=== PATIENT | female | born 1950 | race Caucasian/White ===

== ENCOUNTER 2020-09-08 17:19 | Inpatient (IN) | payer MEDICARE ==
[~2020-09-08] VITALS: Ht 170.2 cm; Wt 84.3 kg
[2020-09-08 18:00] LABS: BASOPHILS ABSOLUTE AUTO 0.05 K/mm3 (0.00-0.23); BASOPHILS PERCENT AUTO 1 % (0-2); EOSINOPHILS ABSOLUTE AUTO 0.17 K/mm3 (0.00-0.68); EOSINOPHILS PERCENT AUTO 2 % (0-6); Hematocrit 42.6 % (33.0-51.0); Hemoglobin 13.8 g/dL (11.5-16.0); IMMATURE GRAN ABSOLUTE AUTO 0.01 K/mm3 (0.00-0.10); IMMATURE GRAN PERCENT AUTO 0 % (0-1); LYMPHOCYTES ABSOLUTE AUTO 1.56 K/mm3 (0.84-5.20); LYMPHOCYTES PERCENT AUTO 22 % (21-46); MONOCYTES ABSOLUTE AUTO 0.74 K/mm3 (0.16-1.47); MONOCYTES PERCENT AUTO 10 % (4-13); Mean Corpuscular HGB 30.8 pg (26.0-34.0); Mean Corpuscular HGB Conc 32.4 g/dL (31.5-36.5); Mean Corpuscular Volume 95 fL (80-100); Mean Platelet Volume 10.4 fL (9.1-12.4); NEUTROPHILS ABSOLUTE AUTO 4.64 K/mm3 (1.96-9.15); NEUTROPHILS PERCENT AUTO 65 % (41-73); Platelet Count 296 K/mm3 (150-400); RDW Coefficient Variation 12.8 % (11.7-14.2); RDW Standard Deviation 45.4 fL (35.1-46.3); Red Blood Cell Count 4.48 M/mm3 (3.80-5.20); White Blood Cell Count 7.17 K/mm3 (4.00-11.30)
[2020-09-08 18:20] LABS: Alanine Aminotransfer (ALT/SGP 31 U/L (12-78); Albumin, Blood 4.2 g/dL (3.4-5.0); Albumin/Globulin Ratio 1.2 (0.8-1.8); Alk Phos 96 U/L (50-136); Anion Gap 8 mmol/L (6-16); Aspartate Aminotrans (AST/SGOT 21 U/L (12-37); Bilirubin, Total 0.3 mg/dL (0.1-1.0); Blood Urea Nitrogen 24 mg/dL (8-24); Bun/Creatinine Ratio 42.6 (12.0-20.0); CO2, Blood 26 mmol/L (21-32); Calcium, Blood 9.7 mg/dL (8.5-10.1); Chloride, Blood 108 mmol/L (98-108); Creatinine, Blood 0.56 mg/dL (0.40-1.00); Globulin, Blood 3.4 g/dL (2.2-4.0); Glomerular Filtration Rate >60 (60-); Glucose, Blood 103 mg/dL (70-99); Potassium, Blood 3.8 mmol/L (3.5-5.5); Sodium, Blood 142 mmol/L (136-145); Total Protein, Blood 7.6 g/dL (6.4-8.2)
[2020-09-08] MEDS ORDERED: LEVSOD100 PO (21:54)
[2020-09-08] MEDS ORDERED: HYDCHL25 PO (21:54)
[2020-09-08] MEDS ORDERED: Robaxin750 MG (21:55)
[2020-09-08] MEDS ORDERED: LOSA50 PO (21:55)
[2020-09-08] MEDS ORDERED: HYDR1TAB94 PO (21:56)
--- NOTE | 2020-09-08 22:00 | NUR ---
PT ARRIVED TO FLOOR ACCOMPANIED BY DAUGHTER. PT A/O, VSS. SATS 89-90% ON RA, 2L O2 NC PLACED. LLE SHORTENED, PT REP MILD N/T AT BASELINE, STATES LLE N/T INC AT HIS TIME. CAP REFILL WNL. PT REP PAIN HARINDER AFTER SETTLED INTO BED. PT ORIENTED TO ROOM/CALL LIGHT. PLAN NPO AT MIDNIGHT FOR SURGERY IN AM.
[2020-09-08 22:01] LABS: Source, Urine Catheter
[2020-09-08 22:04] LABS: Bilirubin, Urine Neg (Neg); Blood, Urine Neg (Neg); Glucose Qualitative, Urine Neg (Neg); Ketones, Urine Neg (Neg); Leukocyte Esterase, Urine Neg (Neg); Nitrite, Urine Neg (Neg); Protein, Urine Neg (Neg); Specific Gravity, Urine 1.025 (1.003-1.022); Urobilinogen, Urine NORM (Normal)
[2020-09-08 22:10] LABS: Appearance, Urine Clear (Clear); Color, Urine Yellow (P-Yellow)
[2020-09-09 05:37] LABS: BASOPHILS ABSOLUTE AUTO 0.05 K/mm3 (0.00-0.23); BASOPHILS PERCENT AUTO 1 % (0-2); EOSINOPHILS ABSOLUTE AUTO 0.03 K/mm3 (0.00-0.68); EOSINOPHILS PERCENT AUTO 0 % (0-6); Hematocrit 35.8 % (33.0-51.0); Hemoglobin 11.7 g/dL (11.5-16.0); IMMATURE GRAN ABSOLUTE AUTO 0.03 K/mm3 (0.00-0.10); IMMATURE GRAN PERCENT AUTO 0 % (0-1); LYMPHOCYTES ABSOLUTE AUTO 1.33 K/mm3 (0.84-5.20); LYMPHOCYTES PERCENT AUTO 13 % (21-46); MONOCYTES ABSOLUTE AUTO 1.03 K/mm3 (0.16-1.47); MONOCYTES PERCENT AUTO 10 % (4-13); Mean Corpuscular HGB 31.4 pg (26.0-34.0); Mean Corpuscular HGB Conc 32.7 g/dL (31.5-36.5); Mean Corpuscular Volume 96 fL (80-100); Mean Platelet Volume 10.6 fL (9.1-12.4); NEUTROPHILS ABSOLUTE AUTO 7.42 K/mm3 (1.96-9.15); NEUTROPHILS PERCENT AUTO 75 % (41-73); Platelet Count 256 K/mm3 (150-400); RDW Coefficient Variation 13.1 % (11.7-14.2); RDW Standard Deviation 46.8 fL (35.1-46.3); Red Blood Cell Count 3.73 M/mm3 (3.80-5.20); White Blood Cell Count 9.89 K/mm3 (4.00-11.30)
[2020-09-09 05:59] LABS: Anion Gap 7 mmol/L (6-16); Blood Urea Nitrogen 21 mg/dL (8-24); Bun/Creatinine Ratio 37.2 (12.0-20.0); CO2, Blood 27 mmol/L (21-32); Calcium, Blood 8.8 mg/dL (8.5-10.1); Chloride, Blood 106 mmol/L (98-108); Creatinine, Blood 0.57 mg/dL (0.40-1.00); Glomerular Filtration Rate >60 (60-); Glucose, Blood 100 mg/dL (70-99); Potassium, Blood 3.8 mmol/L (3.5-5.5); Sodium, Blood 140 mmol/L (136-145)
--- NOTE | 2020-09-09 06:21 | NUR ---
PT NEW ADMIT THIS SHIFT FOR LEFT HIP FX. PT VSS SINCE ARRIVING TO FLOOR, 2LO2 IN PLACE. PAIN MGD PER EMAR AND W/REPOSITIONING. CAP REFILL WNL, PT DOES REP MORE N/T IN LLE THAN BASELINE. PT NPO POST MIDNIGHT FOR PLAN FOR OR THIS AM. IVF CONT PER ORDERS.
--- NOTE | 2020-09-09 08:23 | NUR ---
Patient to OR
--- NOTE | 2020-09-09 09:15 | NUR ---
09/09/20 0915 Anu Maher ANCEF 2 GM IV GIVEN BY DR CHIANG AT 0843 FROM HIS Intense[employer] MACHINE.
--- NOTE | 2020-09-09 11:37 | NUR ---
Patient returned to room 215 s/p L milvia hip. Aquacel dressing CDI. Patient denies pain at this time. Post op VS in progress and WNL. Pt on 2L O2 via NC. Patient resting comfortable at this time. Call light within reach.
--- NOTE | 2020-09-09 15:56 | NUR ---
Shift summary Pain controlled with [place]. Clancy catheter patent draining clear/yellow urine. Aquacel dressing CDI. Patient tolerating regular low sodium diet. Family at bedside earlier today offering support. Call light within patient reach.
[2020-09-10 04:36] LABS: BASOPHILS ABSOLUTE AUTO 0.03 K/mm3 (0.00-0.23); BASOPHILS PERCENT AUTO 0 % (0-2); EOSINOPHILS ABSOLUTE AUTO 0.03 K/mm3 (0.00-0.68); EOSINOPHILS PERCENT AUTO 0 % (0-6); Hematocrit 33.2 % (33.0-51.0); Hemoglobin 10.5 g/dL (11.5-16.0); IMMATURE GRAN ABSOLUTE AUTO 0.03 K/mm3 (0.00-0.10); IMMATURE GRAN PERCENT AUTO 0 % (0-1); LYMPHOCYTES ABSOLUTE AUTO 1.08 K/mm3 (0.84-5.20); LYMPHOCYTES PERCENT AUTO 9 % (21-46); MONOCYTES ABSOLUTE AUTO 1.54 K/mm3 (0.16-1.47); MONOCYTES PERCENT AUTO 12 % (4-13); Mean Corpuscular HGB 30.9 pg (26.0-34.0); Mean Corpuscular HGB Conc 31.6 g/dL (31.5-36.5); Mean Corpuscular Volume 98 fL (80-100); Mean Platelet Volume 9.9 fL (9.1-12.4); NEUTROPHILS ABSOLUTE AUTO 9.94 K/mm3 (1.96-9.15); NEUTROPHILS PERCENT AUTO 79 % (41-73); Platelet Count 214 K/mm3 (150-400); RDW Coefficient Variation 13.1 % (11.7-14.2); RDW Standard Deviation 46.7 fL (35.1-46.3); White Blood Cell Count 12.65 K/mm3 (4.00-11.30)
--- NOTE | 2020-09-10 04:40 | NUR ---
PT REQUESTED FOR NORCO. BROUGHT IN NORCO AND SCANNED IT, BUT THE PT DECIDED ON NOT TAKING IT. NORCO WAS WASTED WITH MARCELA ROMO IN THE PYXIS.
--- NOTE | 2020-09-10 04:42 | NUR ---
PT CALLED REQ PAIN MEDS. NORCO PULLED AND SCANNED BY KRAIG BORJAS RN. PT THEN DECIDED DID NOT WANT THE NORCO AT THIS TIME. MED WASTED AND DISPOSED IN PYXIS W/KRAIG Ibarra RN.
--- NOTE | 2020-09-10 04:56 | NUR ---
SHIFT SUMMARY: CLOSED HIP FX POD 1. PT HAS BEEN A&OX4 THROUGHOUT SHIFT. OXYGEN INCREASED TO 3L FROM THE 2L. SHE HAS BEEN IN THE LOWER 90% SATS SINCE. SHE HAS AN BIOX ON TO MONITOR HER SATS AND ALSO ENCOURAGED HER TO USE THE INCENTIVE SPIROMETER. PT'S PAIN HAS BEEN MANAGED WITH 1 NORCO AND THE TORADOL. ENCISO CATHETER IS DRAINING CLEAR/YELLOW OUTPUT. AQUACEL DRESSING C/D/I. PT TOLERATING REG DIET. DENIES NAUSEA/VOMITING. CALL LIGHT IS WITHIN REACH. PLAN IS FOR PT/OT TO EVALUATE HER TODAY.
--- NOTE | 2020-09-10 08:20 | NUR ---
DR ARREOLA HERE TO SEE PT.
--- NOTE | 2020-09-10 08:41 | NUR ---
DR ARREOLA BACK TO TALK WITH PT PER HER REQ REGARDING HX OF HAVING MRI ON BACK.
--- NOTE | 2020-09-10 09:22 | NUR ---
PT GIVEN TOOTH BRUSH, TOOTH PASTE, AND WARM WET WASH CLOTH FOR FACE PER PT REQ.
--- NOTE | 2020-09-10 09:53 | NUR ---
PT REPOSITIONED PER PT REQ WITH FEMALE ARMATURE TESTER WITH PT'S FAMILY IN ROOM.
--- NOTE | 2020-09-10 10:31 | NUR ---
THERAPY BEEN AND STILL IS WORKING WITH PT, FAMILY PRESENT.
--- NOTE | 2020-09-10 12:18 | NUR ---
PT ENC TO USE I/S, RE-EDUCATED PT ON USE. ICE PLACED TO PT'S HIP. PT UP IN CHAIR FINISHING LUNCH.
--- NOTE | 2020-09-10 16:30 | NUR ---
JONE (CAPRICE) HERE TO SEE PT, DISCUSSED PT'S STATUS.
--- NOTE | 2020-09-10 17:14 | NUR ---
SHIFT SUMMARY PT EATING AND DRINKING. PT HAS ENCISO IN PLACE, DRAINING WELL. PT WAS UP TO CHAIR WITH THERAPY. PT BEEN REPOSITIONED MULT TIMES TODAY IN BED AND CHAIR. PT BEEN ASSISTED WITH ADL'S PRN. PT BEEN MED PRN FOR PAIN.
[2020-09-11 03:51] LABS: BASOPHILS ABSOLUTE AUTO 0.06 K/mm3 (0.00-0.23); BASOPHILS PERCENT AUTO 1 % (0-2); EOSINOPHILS PERCENT AUTO 4 % (0-6); Hematocrit 32.8 % (33.0-51.0); Hemoglobin 10.4 g/dL (11.5-16.0); IMMATURE GRAN ABSOLUTE AUTO 0.03 K/mm3 (0.00-0.10); IMMATURE GRAN PERCENT AUTO 0 % (0-1); LYMPHOCYTES ABSOLUTE AUTO 1.18 K/mm3 (0.84-5.20); LYMPHOCYTES PERCENT AUTO 12 % (21-46); MONOCYTES ABSOLUTE AUTO 1.31 K/mm3 (0.16-1.47); MONOCYTES PERCENT AUTO 13 % (4-13); Mean Corpuscular HGB 30.8 pg (26.0-34.0); Mean Corpuscular HGB Conc 31.7 g/dL (31.5-36.5); Mean Corpuscular Volume 97 fL (80-100); Mean Platelet Volume 10.1 fL (9.1-12.4); NEUTROPHILS ABSOLUTE AUTO 7.06 K/mm3 (1.96-9.15); NEUTROPHILS PERCENT AUTO 70 % (41-73); Platelet Count 194 K/mm3 (150-400); RDW Standard Deviation 46.7 fL (35.1-46.3); Red Blood Cell Count 3.38 M/mm3 (3.80-5.20); White Blood Cell Count 10.04 K/mm3 (4.00-11.30)
--- NOTE | 2020-09-11 04:44 | NUR ---
SHIFT SUMMARY: PT POD#2 FOR LT RAMIREZ HIP. AQUACEL DRESSING C/D/I. PAIN BEING MANAGED WITH NORCO PER EMAR. PT REPOSITIONED FREQUENTLY THROUGHOUT SHIFT. ENCISO IN PLACE WITH ADEQUATE URINE OUTPUT. PT REMAINS ON 2.5LO2 VIA NC WITH AN O2 SATURATION OF 94%. PT ENCOURAGED TO USE INCENTIVE SPIROMETER WHILE AWAKE. PT ANXIOUS TO WORK WITH PHYSICAL THERAPY TODAY. PLAN FOR SNF.
--- NOTE | 2020-09-11 13:10 | NUR ---
DR ARREOLA RECENTLY NOTIFIED THAT PT HAD NOT VOIDED OR HAD BM EVEN THOUGH PT HAS BEEN ENCOURAGED TO HAVE PRUNE JUICE THIS AM WHICH PT REPORTED NOT DRINKING IT, PT HAD SOME WITH LUNCH. GAVE ORDERS FOR B/S AND ENCISO IF NEEDED, SEE ORDERS. REPORTS WILL PLACE ORDER FOR SUPPOSITORY. PT BEEN ASSISTED TO CHAIR. PT DID HAVE SMEAR WITH FEW DROPS OF LIQUID STOOL BUT DID NOT VOID. PT B/S 90. DR ARREOLA NOTIFIED OF THESE RESULTS, REPORTED TO CONT WITH DISCHARGE AND TO CONT TO ENC PO INTAKE. ORDER FOR B/S AND ENCISO IN WITH DISCHARGE PAPERWORK. PT TO BE OUT BY TRANSPORT BY W/C WITH O2 IN PLACE. FAMILY PRESENT. DISCUSSED WITH OTHER CLARISSA Monreal AND CHROME TANNING DRUM OPERATOR H.L..
--- NOTE | 2020-09-11 13:43 | NUR ---
DISCHARGE NOTE PT A/O X4, IV ACCESS DC'D W/ NO OTHER IV ACCESS IN PLACE, NO SORES ON BUTTOCKS OR HEELS, TOLERATING PO, BLADDER SCAN PRIOR TO DC SHOWS 90 ML IN BLADDER, ENCISO DC'D THIS MORNING, SMALL SMEAR BM JUST PRIOR TO DC, DOES WELL W/ 2 PERSON ASSIST FOR TRANSFERRING, PAIN WELL CONTROLLED (SEE EMAR), PT LEFT AT 1330 VIA WC W/ ALL PERSONAL POSSESSIONS AND 2L O2 VIA PORTABLE CANISTER. REPORT GIVEN TO COMFORT AT [facility] @ 3647.
== END 2020-09-11 13:29 | DRG 522 ==
LOC: ER 17:19 → UNDODEPER 20:28 → ER 20:28 → SURS 20:54
PROVIDERS: Orthopaedic Surgery; Physician Assistant; ADMIT Internal Medicine
PROC: 0SRS0JA Replacement of Left Hip Joint, Femoral Surface with Synthetic Substitute, Uncemented, Open Approach (ICD-10-PCS; principal; 2020-09-09 07:00)
DX: S72.002A Fracture of unspecified part of neck of left femur, initial encounter for closed fracture (principal); W19.XXXA Unspecified fall, initial encounter; E78.5 Hyperlipidemia, unspecified; I10 Essential (primary) hypertension; E03.9 Hypothyroidism, unspecified; Z20.828 Contact with and (suspected) exposure to other viral communicable diseases; M81.0 Age-related osteoporosis without current pathological fracture; D86.9 Sarcoidosis, unspecified; M54.5 Low back pain; G89.29 Other chronic pain; F41.9 Anxiety disorder, unspecified; F32.9 Major depressive disorder, single episode, unspecified; Z88.2 Allergy status to sulfonamides
CPT/HCPCS: 36415; 51702; 71045; 72100; 72170; 73502; 80048; 80053; 81003; 85025; 93005; 93010; 94762; 96374-59; 96375-59; 97110; 97116; 97162; 97166; 97535; 99285-25; A9270-GY; C1776; J0171; J0690; J0735; J1100; J1170; J1650; J1885; J2250; J2270; J2370; J2405; J2704; J2795; J3010; J7120; U0003

== ENCOUNTER → 2022-02-07 | Outpatient (CLI) | payer MEDICARE ==
[~2022-02-07] MED LIST: HYDCHL25 PO; HYDR1TAB94 PO; LEVSOD100 PO; LOSA50 PO; Robaxin750 MG
[2022-02-07 12:35] LABS: BASOPHILS ABSOLUTE AUTO 0.05 K/mm3 (0.00-0.23); BASOPHILS PERCENT AUTO 1 % (0-2); EOSINOPHILS ABSOLUTE AUTO 0.18 K/mm3 (0.00-0.68); EOSINOPHILS PERCENT AUTO 3 % (0-6); Hematocrit 43.2 % (33.0-51.0); Hemoglobin 14.5 g/dL (11.5-16.0); IMMATURE GRAN ABSOLUTE AUTO 0.02 K/mm3 (0.00-0.10); IMMATURE GRAN PERCENT AUTO 0 % (0-1); LYMPHOCYTES PERCENT AUTO 25 % (21-46); MONOCYTES ABSOLUTE AUTO 0.63 K/mm3 (0.16-1.47); MONOCYTES PERCENT AUTO 10 % (4-13); Mean Corpuscular HGB 30.9 pg (26.0-34.0); Mean Corpuscular HGB Conc 33.6 g/dL (31.5-36.5); Mean Corpuscular Volume 92 fL (80-100); Mean Platelet Volume 10.3 fL (9.1-12.4); NEUTROPHILS ABSOLUTE AUTO 4.04 K/mm3 (1.96-9.15); NEUTROPHILS PERCENT AUTO 62 % (41-73); Platelet Count 288 K/mm3 (150-400); RDW Coefficient Variation 14.2 % (11.7-14.2); RDW Standard Deviation 47.8 fL (35.1-46.3); White Blood Cell Count 6.52 K/mm3 (4.00-11.30)
[2022-02-07 12:45] LABS: Alanine Aminotransfer (ALT/SGP 30 U/L (12-78); Albumin, Blood 4.2 g/dL (3.4-5.0); Albumin/Globulin Ratio 1.2 (0.8-1.8); Alk Phos 82 U/L (40-126); Anion Gap 9 mmol/L (6-16); Aspartate Aminotrans (AST/SGOT 19 U/L (12-37); Bilirubin, Total 0.5 mg/dL (0.1-1.0); Blood Urea Nitrogen 21 mg/dL (8-24); Bun/Creatinine Ratio 31.3 (12.0-20.0); CO2, Blood 26 mmol/L (21-32); Calcium, Blood 9.4 mg/dL (8.5-10.1); Chloride, Blood 104 mmol/L (98-108); Creatinine, Blood 0.67 mg/dL (0.40-1.00); Globulin, Blood 3.5 g/dL (2.2-4.0); Glomerular Filtration Rate >60 (60-); Glucose, Blood 89 mg/dL (70-99); Potassium, Blood 3.9 mmol/L (3.5-5.5); Sodium, Blood 139 mmol/L (136-145); Total Protein, Blood 7.7 g/dL (6.4-8.2); Uric Acid, Blood 4.4 mg/dL (2.6-6.0)
[2022-02-10 12:08] LABS: ANA DIRECT Negative (Negative); ANTI-DNA (DS) AB QN <1 IU/mL (0-9); RNP ANTIBODIES 0.7 AI (0.0-0.9); SJOGREN'S ANTI-SS-A <0.2 AI (0.0-0.9); SJOGREN'S ANTI-SS-B <0.2 AI (0.0-0.9); SMITH ANTIBODIES <0.2 AI (0.0-0.9)
== END ==
LOC: LAB SHORT 12:27
PROVIDERS: Chiropractor
DX: M79.641 Pain in right hand (principal); M79.642 Pain in left hand
CPT/HCPCS: 80053; 84550; 85025; 86200; 86225; 86235; 86430

== ENCOUNTER → 2023-03-28 | Outpatient (CLI) | payer MEDICARE ==
[2023-03-28 10:57] LABS: BASOPHILS PERCENT AUTO 2 % (0-2); EOSINOPHILS ABSOLUTE AUTO 0.36 K/mm3 (0.00-0.68); EOSINOPHILS PERCENT AUTO 5 % (0-6); Hematocrit 42.5 % (33.0-51.0); Hemoglobin 14.4 g/dL (11.5-16.0); IMMATURE GRAN ABSOLUTE AUTO 0.02 K/mm3 (0.00-0.10); IMMATURE GRAN PERCENT AUTO 0 % (0-1); LYMPHOCYTES ABSOLUTE AUTO 1.58 K/mm3 (0.84-5.20); LYMPHOCYTES PERCENT AUTO 24 % (21-46); MONOCYTES ABSOLUTE AUTO 0.63 K/mm3 (0.16-1.47); MONOCYTES PERCENT AUTO 10 % (4-13); Mean Corpuscular HGB 31.4 pg (26.0-34.0); Mean Corpuscular HGB Conc 33.9 g/dL (31.5-36.5); Mean Corpuscular Volume 93 fL (80-100); Mean Platelet Volume 9.9 fL (9.1-12.4); NEUTROPHILS ABSOLUTE AUTO 3.96 K/mm3 (1.96-9.15); NEUTROPHILS PERCENT AUTO 60 % (41-73); Platelet Count 264 K/mm3 (150-400); RDW Coefficient Variation 13.5 % (11.7-14.2); RDW Standard Deviation 45.9 fL (35.1-46.3); Red Blood Cell Count 4.59 M/mm3 (3.80-5.20); White Blood Cell Count 6.65 K/mm3 (4.00-11.30)
[2023-03-28 11:00] LABS: Calcium, Blood 8.9 mg/dL (8.5-10.1); Creatinine, Blood 0.76 mg/dL (0.40-1.00); Potassium, Blood 4.1 mmol/L (3.5-5.5)
== END | disposition home or self-care (01) ==
LOC: LAB SHORT 10:52 → LAB 10:52
PROVIDERS: Physician Assistant Surgical
DX: R06.00 Dyspnea, unspecified (principal)
CPT/HCPCS: 80048; 83880; 85025

== ENCOUNTER → 2023-08-31 | Outpatient (CLI) | payer MEDICARE | END | disposition home or self-care (01) | LOC: LAB SHORT 13:52 → LAB 13:52 | DX: L03.032 Cellulitis of left toe (principal) | CPT/HCPCS: 87070; 87077; 87186; 87205 ==

== ENCOUNTER → 2023-10-22 | Outpatient (CLI) | payer MEDICARE | END | disposition home or self-care (01) | LOC: PLD 08:20 → LAB SHORT 08:20 | DX: D22.72 Melanocytic nevi of left lower limb, including hip (principal) | CPT/HCPCS: 88305 ==

== ENCOUNTER → 2025-03-23 | Outpatient (CLI) | payer MEDICARE | LOC: LAB SHORT 14:34 → LAB 14:34 | DX: L82.1 Other seborrheic keratosis (principal) | CPT/HCPCS: 88305 ==

== ENCOUNTER 2025-07-13 06:40 | Day surgery (SDC) | payer MEDICARE ==
[~2025-07-13] VITALS: Ht 170.2 cm; Wt 81.8 kg
[2025-07-13] VITALS (15 sets, daily range): BP systolic 109–166; BP diastolic 78–119
[~2025-07-13 06:40] MED LIST changes: +ELIQUIS5 M2 PO; +Lopressor 25 mg25 MG PO; +MAG GLYCINATE100 MG PO; +MAG-OXIDE MAGN200 MG PO; +ROSUVASTATIN CAL5 MG PO
[2025-07-13] MEDS ORDERED: Heparin Sodium 1000 Units/ML 10ML MDV ONE (06:48)
[2025-07-13] MEDS ORDERED: NS 1,000 ML IV ONE ×2 (06:48→07:09)
[2025-07-13] MEDS ORDERED: NS 500 ML IV ONE (06:51)
[2025-07-13] MEDS ORDERED: Bupivacaine 0.5% HCl 5 MG/ML 30MLVIAL ONE (06:52)
[2025-07-13] MEDS ORDERED: CeFAZolin Sodium 1000 mg Vial ONE (06:53)
[2025-07-13] MEDS ORDERED: NS 100 ML IV ONE (07:08)
[2025-07-13] MEDS ORDERED: CeFAZolin Sodium 2,000 MG VIAL ONE (07:08)
[2025-07-13] MEDS ORDERED: FentaNYL Citrate 50 MCG/ML 2 ML Injection ONE ×2 (07:20→08:50)
[2025-07-13] MEDS ORDERED: Midazolam HCl 1MG / ML 2ML Vial ONE ×2 (07:20→08:31)
[2025-07-13] MEDS ORDERED: Phenylephrine HCl 100 MCG/ML-NS 10MLSYR (1MG/10ML) ONE (08:35)
[2025-07-13] MEDS ORDERED: Lidocaine 2%-Epineph 1:100000 20 ML MDV ONE (09:01)
--- NOTE | 2025-07-13 09:45 | NUR ---
PATIENT ARRIVED BACK TO RECOVERY ROOM SITTING UPRIGHT IN BED. PACEMAKER SITE C/D/O SOFT/NONTENDER, NO EVIDENCE OF BLEEDING. PATIENT DROWSY, BUT CONVERSING APPROPRIATELY. PATIENT DENYING ANY PAIN. VSS ON RA.
--- NOTE | 2025-07-13 10:26 | NUR ---
PATIENT USING RESTROOM WITH ASSITANCE, VOIDING WITHOUT DIFFICULTY. EKG AND CHEST X RAY PERFORMED. NEW PRESCRIPTION CALLED TO PATIENT PREFERRED PHARMACY. VSS ON RA. PATIENT DENYING ANY PAIN. LEFT CHEST DRESSING C/D/I, SOFT/NONTENDER, NO EVIDENCE OF BLEEDING.
--- NOTE | 2025-07-13 11:45 | NUR ---
PATIENT TRANSFERRED FROM BED TO RECLINER WITHOUT DIFFICULTY. PATIENT TOLERATING PO INTAKE WELL. VSS ON RA. l ARM IN IMMOBOLIZER.
--- NOTE | 2025-07-13 12:15 | NUR ---
PATIENT RESTING COMFORTABLY IN RECLINER. PATIENT DNEYING ANY PAIN. VSS ON RA.
--- NOTE | 2025-07-13 12:53 | NUR ---
PATIENT RESTING COMFORTABLY IN RECLINER. PATIENT DENYING ANY PAIN. PACEMAKER INTERROGATION PERFORMED. VSS ON RA. L CHEST DRESSING C/D/I SOFT/NONTENDER, NO EVIDENCE OF BLEEDING.
--- NOTE | 2025-07-13 13:45 | NUR ---
MD PRESENT AT BEDSIDE DISCUSSING PACEMAKER RESULTS AND INSTRUCTIONS.
[2025-07-13] MEDS ORDERED: WARF4 PO (13:55)
--- NOTE | 2025-07-13 14:00 | NUR ---
[facility] REFERRAL FAXED TO PHARMACY
--- NOTE | 2025-07-13 14:10 | NUR ---
PATIENT DISHCARGED HOME AT THIS TIME. PATIENT USING RESTROOM WITH ASSISTANCE. PIV REMOVED WITHOUT DIFFICULTY, CATHETER INTACT. VSS ON RA. DISCHARGE INSTRUCTIONS REVIEWED WITH PATIENT AND DAUGHTER. FOLLOW UP APPOINTMENTS REVIEWED. ARM IMMOBILIZER IN PLACE.
== END 2025-07-13 14:10 | disposition home or self-care (01) ==
LOC: MHTC 06:40
DX: I49.5 Sick sinus syndrome (principal); I48.0 Paroxysmal atrial fibrillation; I45.3 Trifascicular block; I11.0 Hypertensive heart disease with heart failure; I50.30 Unspecified diastolic (congestive) heart failure; E78.00 Pure hypercholesterolemia, unspecified; I47.10 Supraventricular tachycardia, unspecified; M79.7 Fibromyalgia; E03.9 Hypothyroidism, unspecified; G60.9 Hereditary and idiopathic neuropathy, unspecified; D86.9 Sarcoidosis, unspecified; Z79.01 Long term (current) use of anticoagulants; Z79.890 Hormone replacement therapy; Z79.899 Other long term (current) drug therapy; Z88.2 Allergy status to sulfonamides; Z96.649 Presence of unspecified artificial hip joint
CPT/HCPCS: 33208; 71046; 93005; 93010; 99152; 99153; A9270; C1785; C1894; C1898; J0461; J0690; J1644; J2250; J2371; J3010; J7030; J7040; Q9967